=== PATIENT | male | born 1960 | race Caucasian/White ===

== ENCOUNTER 2017-12-24 16:17 | Emergency (ER) | payer BC ==
[2017-12-24] MEDS ORDERED: DIPH/PERTUSS(ACELL)/TETANUS VAC/PF 0.5 ML SYR (>=10YO) IM ONE (16:33)
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
[2017-12-24] MEDS ORDERED: SILVER SULFADIAZINE 1% CREAM 400 GM TP PRN (16:55)
[2017-12-24 17:11] VITALS: BP 143/80
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
== END 2017-12-24 17:27 | disposition home or self-care (01) ==
LOC: ER 16:17
DX: T24.211A Burn of second degree of right thigh, initial encounter (principal); T21.12XA Burn of first degree of abdominal wall, initial encounter; X10.0XXA Contact with hot drinks, initial encounter; Z87.891 Personal history of nicotine dependence
CPT/HCPCS: 99283; 90471; 90715; J3490